=== PATIENT | male | born 1985 | race Caucasian/White ===

== ENCOUNTER 2019-12-04 11:16 | Emergency (ER) | payer OTHER ==
[~2019-12-04] VITALS: Ht 175.3 cm; Wt 90.9 kg
[2019-12-04 11:17] VITALS: BP 158/95
[2019-12-04] MEDS ORDERED: CEPH250T PO (12:04)
== END 2019-12-04 12:12 | disposition home or self-care (01) ==
LOC: ER 11:17
DX: S61.512A Laceration without foreign body of left wrist, initial encounter (principal); S61.012A Laceration without foreign body of left thumb without damage to nail, initial encounter; W26.0XXA Contact with knife, initial encounter; Y93.89 Activity, other specified; Y92.89 Other specified places as the place of occurrence of the external cause; Y99.8 Other external cause status
CPT/HCPCS: 12002; 99284